=== PATIENT | female | born 1990 | race Two or more races ===

== ENCOUNTER 2023-01-17 09:34 | Emergency (ER) | payer OTHER ==
[~2023-01-17] VITALS: Ht 152.4 cm; Wt 49.9 kg
== END 2023-01-17 17:26 | disposition home or self-care (01) ==
LOC: ER 09:34
DX: O26.891 Other specified pregnancy related conditions, first trimester (principal); Z3A.01 Less than 8 weeks gestation of pregnancy

== ENCOUNTER 2023-02-12 10:34 | Outpatient (CLI) | payer OTHER | END 2023-02-12 11:34 | disposition home or self-care (01) | LOC: PRENATAL 10:34 | PROVIDERS: ATTEND Obstetrics & Gynecology Maternal & Fetal Medicine | DX: O36.80X0 Pregnancy with inconclusive fetal viability, not applicable or unspecified (principal); O34.80 Maternal care for other abnormalities of pelvic organs, unspecified trimester; Z3A.01 Less than 8 weeks gestation of pregnancy ==

== ENCOUNTER 2023-03-04 09:15 | Outpatient (CLI) | payer OTHER | END 2023-03-04 10:34 | disposition home or self-care (01) | LOC: PRENATAL 09:15 | PROVIDERS: ATTEND Obstetrics & Gynecology Maternal & Fetal Medicine | DX: O36.80X0 Pregnancy with inconclusive fetal viability, not applicable or unspecified (principal); O34.80 Maternal care for other abnormalities of pelvic organs, unspecified trimester; Z3A.12 12 weeks gestation of pregnancy ==

== ENCOUNTER 2023-05-04 14:51 | Outpatient (CLI) | payer OTHER | END 2023-05-04 16:59 | disposition home or self-care (01) | LOC: PRENATAL 14:51 | PROVIDERS: ATTEND Obstetrics & Gynecology Maternal & Fetal Medicine | DX: O35.3XX0 Maternal care for (suspected) damage to fetus from viral disease in mother, not applicable or unspecified (principal); O34.80 Maternal care for other abnormalities of pelvic organs, unspecified trimester; O44.00 Complete placenta previa NOS or without hemorrhage, unspecified trimester; Z3A.21 21 weeks gestation of pregnancy ==

== ENCOUNTER 2023-05-25 19:14 | Outpatient (CLI) | payer OTHER | END 2023-05-25 19:36 | disposition home or self-care (01) | LOC: NST 19:14 | PROVIDERS: ATTEND Student in an Organized Health Care Education/Training Program | DX: Z34.92 Encounter for supervision of normal pregnancy, unspecified, second trimester (principal) ==

== ENCOUNTER 2023-06-18 13:47 | Outpatient (CLI) | payer OTHER | END 2023-06-18 14:47 | disposition home or self-care (01) | LOC: PRENATAL 13:47 | PROVIDERS: ATTEND Obstetrics & Gynecology Maternal & Fetal Medicine | DX: O26.849 Uterine size-date discrepancy, unspecified trimester (principal); O35.3XX0 Maternal care for (suspected) damage to fetus from viral disease in mother, not applicable or unspecified; Z3A.27 27 weeks gestation of pregnancy ==

== ENCOUNTER 2023-07-31 21:23 | Outpatient (CLI) | payer OTHER ==
[~2023-07-31] VITALS: Ht 152.4 cm; Wt 59.0 kg
[2023-07-31] MEDS ORDERED: ONDANSETRON HCL8 MG PO (21:24)
[2023-07-31] MEDS ORDERED: MAXFE CAPLET1 EAC1 PO (21:25)
[2023-07-31] MEDS ORDERED: PEPCID AC20 MG PO (21:25)
[2023-07-31 21:54] LABS: PH,URINE 7.5 (5.0-8.0); URINE APPEARANCE Clear; URINE BILIRRUBIN Negative (NEGATIVE); URINE BLOOD Negative; URINE COLOR Yellow; URINE GLUCOSE Negative (NEGATIVE); URINE LEUKOCYTE Negative; URINE NITRATE Negative; URINE PROTEIN Trace (NEGATIVE); URINE UROBILINOGEN 0.2 E.U./dl
[2023-07-31 21:58] LABS: URINE BACTERIA 366.6 uL (0.0-1933); URINE EPITHELIAL CELLS 18.9 uL (0.0-38.8); URINE WBC 8.6 uL (0.0-23.2)
[2023-07-31 22:01] LABS: URINE RBC 1.5 uL (0.0-20.8)
== END 2023-08-01 10:09 | disposition home or self-care (01) ==
LOC: OBS/DEL 21:23
PROVIDERS: Obstetrics & Gynecology; ATTEND Student in an Organized Health Care Education/Training Program
DX: O26.893 Other specified pregnancy related conditions, third trimester (principal); N89.8 Other specified noninflammatory disorders of vagina; Z3A.34 34 weeks gestation of pregnancy

== ENCOUNTER 2023-09-03 13:30 | Inpatient (IN) | payer OTHER ==
[~2023-09-03] VITALS: Ht 152.4 cm; Wt 59.9 kg
[~2023-09-03 13:30] MED LIST: MAXFE CAPLET1 EAC1 PO; ONDANSETRON HCL8 MG PO; PEPCID AC20 MG PO
[2023-09-03 15:12] LABS: HEMATOCRIT 39.2 % (36.0-45.00); HEMOGLOBIN 13.1 g/dL (12.0-15.00); MEAN CELL VOLUME 88.4 fL (80.00-100.00); MEAN CORPUSCULAR HEMOGLOBIN 29.4 pg (27.00-32.0); MEAN CORPUSCULAR HGB CONC 33.3 g/dl (32.0-36.0); PLATELET COUNT 146 K/uL (150-450); RED BLOOD COUNT 4.44 M/uL (4.00-6.00); RED CELL DISTRIBUTION WIDTH 13.7 % (11.5-14.5)
[2023-09-03 15:12] LABS: PH,URINE 6.5 (5.0-8.0); URINE APPEARANCE Clear; URINE BILIRRUBIN Negative (NEGATIVE); URINE BLOOD Negative; URINE COLOR Yellow; URINE GLUCOSE Negative (NEGATIVE); URINE LEUKOCYTE Negative; URINE NITRATE Negative; URINE PROTEIN Negative (NEGATIVE); URINE UROBILINOGEN 0.2 E.U./dl
[2023-09-03 15:16] LABS: URINE BACTERIA 515.3 uL (0.0-1933); URINE EPITHELIAL CELLS 10.4 uL (0.0-38.8); URINE WBC 10.4 uL (0.0-23.2)
[2023-09-03 15:21] LABS: URINE RBC 1.4 uL (0.0-20.8)
[2023-09-03 15:30] LABS: INR < 0.93; PROTHROMBIN TIME 9.3 SECONDS (9.0-11.5)
[2023-09-03 15:35] LABS: ALBUMIN 3.2 gm/dL (3.4-5.0); BILIRUBIN TOTAL 0.35 mg/dL (0.3-1.2); CALCIUM 9.4 mg/dL (8.5-10.1); CREATININE SERUM 0.47 mg/dL (0.55-1.02); GFR 154.56; GLOBULINA 3.4 G/DL (2.4-3.5); POTASSIUM 4.34 mEq/L (3.5-5.1); TOTAL PROTEIN 6.6 gm/dL (6.4-8.2)
[2023-09-04] MEDS ORDERED: PRENATAL TABLE1 EAC1 (14:18)
[2023-09-05 20:36] LABS: HEMATOCRIT 33.1 % (36.0-45.00); HEMOGLOBIN 11.3 g/dL (12.0-15.00); MEAN CELL VOLUME 87.5 fL (80.00-100.00); MEAN CORPUSCULAR HEMOGLOBIN 29.8 pg (27.00-32.0); PLATELET COUNT 173 K/uL (150-450); RED BLOOD COUNT 3.79 M/uL (4.00-6.00); RED CELL DISTRIBUTION WIDTH 14.1 % (11.5-14.5)
== END 2023-09-07 13:28 | disposition home or self-care (01) | DRG 807 ==
LOC: LDR 09-04 13:03 → OB/GYN 09-05 12:59 → LDR 09-11 13:30
PROVIDERS: Obstetrics & Gynecology; ADMIT Student in an Organized Health Care Education/Training Program; ATTEND Student in an Organized Health Care Education/Training Program
PROC: 3E0P7VZ Introduction of Hormone into Female Reproductive, Via Natural or Artificial Opening (ICD-10-PCS; 2023-09-04)
PROC: 4A1HXCZ Monitoring of Products of Conception, Cardiac Rate, External Approach (ICD-10-PCS; 2023-09-04)
PROC: 10E0XZZ Delivery of Products of Conception, External Approach (ICD-10-PCS; principal; 2023-09-05)
PROC: 3E033VJ Introduction of Other Hormone into Peripheral Vein, Percutaneous Approach (ICD-10-PCS; 2023-09-05)
DX: O80 Encounter for full-term uncomplicated delivery (principal); Z37.0 Single live birth; Z3A.39 39 weeks gestation of pregnancy; Z20.822 Contact with and (suspected) exposure to COVID-19

== ENCOUNTER 2023-12-07 11:52 | Day surgery (SDC) | payer OTHER ==
[2023-11-20 12:27] LABS: PH,URINE 5.5 (5.0-8.0); URINE APPEARANCE Clear; URINE BILIRRUBIN Negative (NEGATIVE); URINE BLOOD Negative; URINE COLOR Yellow; URINE GLUCOSE Negative (NEGATIVE); URINE LEUKOCYTE Negative; URINE NITRATE Negative; URINE PROTEIN Negative (NEGATIVE); URINE UROBILINOGEN 0.2 E.U./dl
[2023-11-20 12:29] LABS: URINE EPITHELIAL CELLS 12.3 uL (0.0-38.8); URINE RBC 2.2 uL (0.0-20.8)
[2023-11-20 12:33] LABS: URINE WBC 1.5 uL (0.0-23.2)
[2023-11-20 12:41] LABS: HEMATOCRIT 42.5 % (36.0-45.00); HEMOGLOBIN 14.1 g/dL (12.0-15.00); MEAN CELL VOLUME 85.3 fL (80.00-100.00); MEAN CORPUSCULAR HEMOGLOBIN 28.3 pg (27.00-32.0); MEAN CORPUSCULAR HGB CONC 33.2 g/dl (32.0-36.0); PLATELET COUNT 262 K/uL (150-450); RED BLOOD COUNT 4.98 M/uL (4.00-6.00)
[2023-11-20 13:01] LABS: INR 1.02; PARTIAL THROMBOPLASTIN TIME 30.1 SECONDS (22.0-34.0); PROTHROMBIN TIME 10.7 SECONDS (9.0-11.5)
[2023-11-20 13:14] LABS: ALBUMIN 4.2 gm/dL (3.4-5.0); BILIRUBIN TOTAL 0.51 mg/dL (0.3-1.2); CALCIUM 9.6 mg/dL (8.5-10.1); CREATININE SERUM 0.64 mg/dL (0.55-1.02); GFR 108.23; GLOBULINA 3.6 G/DL (2.4-3.5); POTASSIUM 4.44 mEq/L (3.5-5.1); TOTAL PROTEIN 7.8 gm/dL (6.4-8.2)
[~2023-12-07 11:52] MED LIST changes: +PRENATAL TABLE1 EAC1
[2023-12-07] MEDS ORDERED: CEFAZOLIN SODIUM 1,000 MG VIAL ONE (13:54)
[2023-12-07] MEDS ORDERED: POVIDONE-IODINE 118 ML BOTT TOP ONE (15:28)
[2023-12-07] MEDS ORDERED: LIDOCAINE HCL/EPINEPHRINE 20 ML VIAL IJ ONE ×2 (16:34→17:45)
[2023-12-07] MEDS ORDERED: RINGERS SOLUTION,LACTATED 1,000 ML IV SCH (17:30)
[2023-12-07] MEDS ORDERED: ONDANSETRON HCL 2 MG/ML VIAL IV PRN (17:30)
[2023-12-07] MEDS ORDERED: MORPHINE SULFATE 4 MG/ML VIAL IV PRN (17:30)
[2023-12-07] MEDS ORDERED: KETOROLAC TROMETHAMINE 30 MG VIAL IV PRN (17:30)
[2023-12-07] MEDS ORDERED: CEFAZOLIN SODIUM 1,000 MG VIAL IV ONE (17:45)
== END 2023-12-07 19:00 | disposition home or self-care (01) ==
LOC: CIR.AMB 11:52
PROVIDERS: ATTEND Student in an Organized Health Care Education/Training Program
DX: D06.0 Carcinoma in situ of endocervix (principal); N93.8 Other specified abnormal uterine and vaginal bleeding; Z20.822 Contact with and (suspected) exposure to COVID-19